=== PATIENT | male | born 1995 | race Caucasian/White ===

== ENCOUNTER 2022-03-16 08:00 | Outpatient (CLI) | payer SELFPAY ==
--- NOTE | 2022-03-16 11:24 | XRAY Report ---
PROCEDURE: Elbow 3 View RT INDICATIONS: RIGHT ELBOW PAIN TECHNIQUE: 3 views of the elbow were acquired. COMPARISON: None FINDINGS: Bones: No definite acute fracture is visualized. No dislocations. No suspicious bony lesions. Soft tissues: Prominent anterior elbow joint effusion. No suspicious soft tissue calcifications. IMPRESSION: No definite acute fracture is visualized. No dislocation. However, there is a prominent anterior elbo w joint effusion. In the setting of trauma, an occult fracture not excluded. Recommend immobilization and repeat imaging in 10-14 days. Reviewed by: Alli Mohan MD on 03/16/2022 11:23 AM PDT Approved by: Alli Mohan MD on 03/16/2022 11:23 AM PDT Station ID: [id number]
== END 2022-03-16 23:59 | disposition home or self-care (01) ==
LOC: DI.S 08:00
PROVIDERS: ATTEND Registered Nurse
DX: M25.421 Effusion, right elbow (principal); M25.521 Pain in right elbow

== ENCOUNTER 2022-03-30 08:00 | Outpatient (CLI) | payer SELFPAY ==
--- NOTE | 2022-03-30 11:24 | XRAY Report ---
PROCEDURE: Elbow 3 View RT INDICATIONS: PAIN IN RIGHT ELBOW TECHNIQUE: 3 views of the elbow were acquired. COMPARISON: Right elbow radiographs 03/16/2022 FINDINGS: Bones: No acute fractures or dislocations. No suspicious bony lesions. Soft tissues: Persistent elbow joint effusion is noted that does not appear significantly changed whe n compared to the prior exam.. No suspicious soft tissue calcifications. IMPRESSION: No acute or healing osseous fracture identified. However, there is a persistent elbow joint effusion, and occult injury cannot be excluded. MRI could be performed for further evaluation if indicated cli nically. Reviewed by: Yusuf Anders MD on 03/30/2022 11:23 AM PDT Approved by: Yusuf Anders MD on 03/30/2022 11:23 AM PDT Station ID: [id number]
--- NOTE | 2022-03-30 14:43 | XRAY Report ---
PROCEDURE: Wrist 3 View RT INDICATIONS: PAIN IN RIGHT WRIST TECHNIQUE: 3 views of the wrist were acquired. COMPARISON: None FINDINGS: Bones: No fractures or dislocations. No suspicious bony lesions. Scaphoid view: Scaphoid is grossly intact. Soft tissues: No suspicious soft tissue calcifications. IMPRESSION: Unremarkable radiographic examination of right wrist. Reviewed by: Manohar Roldan MD on 03/30/2022 2:42 PM PDT Approved by: Manohar Roldan MD on 03/30/2022 2:42 PM PDT Station ID: [id number]
== END 2022-03-30 23:59 | disposition home or self-care (01) ==
LOC: DI.S 08:00
PROVIDERS: ATTEND Physician Assistant Medical
DX: M25.531 Pain in right wrist (principal); M25.521 Pain in right elbow; M25.421 Effusion, right elbow